=== PATIENT | female | born 1940 | race Caucasian/White ===

== ENCOUNTER → 2017-01-16 | Outpatient (CLI) | payer MEDICARE, BC ==
[~2017-01-16] MED LIST: APIX5TAB3 PO; CALC500T30 PO; CHOL10003 PO; CITA20TA9 PO; DOCU-109 PO; HYDR12.58 PO; IOHEXOL 300 MG/ML 50 ML VIAL. ONE; LATA2.5D3 EACHEYE; LIDOCAINE 1% PF 30 ML VIAL. ONE; POLY17PO5 PO; TRAM50TA PO; methylPREDNISolone ACETATE 40 MG/ML VIAL. ONE
== END | disposition home or self-care (01) ==
LOC: SURG 13:48
PROVIDERS: ATTEND Anesthesiology
DX: M16.11 Unilateral primary osteoarthritis, right hip (principal); I10 Essential (primary) hypertension; Z98.41 Cataract extraction status, right eye; Z98.42 Cataract extraction status, left eye
CPT/HCPCS: 20610; 77002; J1030; J2001; Q9967

== ENCOUNTER 2017-01-19 16:10 | Inpatient (IN) | payer MEDICARE, BC ==
[~2017-01-19] VITALS: Ht 154.9 cm; Wt 43.1 kg
[2017-01-19 14:30] VITALS: BP 162/82
[2017-01-19] MEDS ORDERED: CITA20TA9 PO (16:47)
[2017-01-19] MEDS ORDERED: HYDR12.58 PO (16:47)
[2017-01-19] MEDS ORDERED: CHOL10003 PO (16:47)
[2017-01-19] MEDS ORDERED: LATA2.5D3 EACHEYE (16:47)
[2017-01-19] MEDS ORDERED: TRAM50TA PO (16:47)
[2017-01-19] MEDS ORDERED: CALC500T30 PO (16:47)
[2017-01-19 19:54] VITALS: BP 133/65
[2017-01-19] MEDS: ONDANSETRON PF 4 MG/2 ML VIAL. IV PRN (20:11)
[2017-01-19] MEDS: LATANOPROST 0.005% OPHTH SOLUTION 2.5ML BOTTLE. OU SCH (20:12)
[2017-01-19] MEDS: ENOXAPARIN 40 MG/0.4 ML DISP.SYRIN. SQ SCH (20:12)
[2017-01-19] MEDS: traMADol 50 MG TABLET PO PRN (20:13)
--- NOTE | 2017-01-19 21:24 | RAD ---
Two-view chest radiograph 01/19/2017 CLINICAL INDICATION: Shortness of air. COMPARISON: None. FINDINGS: Cardiac and mediastinal silhouettes unremarkable. Scattered areas of pleural/parenchymal scarring throughout both lungs. No pleural effusion, pneumothorax or focal consolidation. There are moderate mid thoracic compression deformities with exaggerated kyphosis. Calcified atheromatous disease of throughout the aorta. Impression: 1. No acute cardiopulmonary abnormality. 2. Moderate midthoracic compression deformities, age indeterminate. Correlation with point tenderness is recommended. Electronically signed by: Twin Fairbanks MD (01/19/2017 9:20 PM) [facility]
[2017-01-20 00:16] VITALS: BP 141/66
--- NOTE | 2017-01-20 03:09 | HP ---
ADMIT DATE: 01/19/2017 HISTORY OF PRESENT ILLNESS: The patient is admitted as she was found to have bilateral deep vein thrombosis identified in the bilateral lower extremity venous system. She came to her primary care physician as she has some blackish discoloration outer aspect of her right foot and was worried about ischemia and basically while the technologist is doing arterial Doppler ultrasound today, incidentally found that the patient has nonocclusive clot identified in the common femoral vein, proximal, mid and distal femoral vein and popliteal vein. The right calf veins could not be identified. There is also nonocclusive clot identified in the left common femoral vein. There is also occlusive clot identified in deep femoral vein, visualized left superficial femoral. Popliteal veins are patent, and was admitted for anticoagulation. The patient herself denied any chest pain. She does have cough and shortness of breath that is outdated or has been there for a while now, mostly on exertion. Denied any hemoptysis. She did not specifically state that her shortness of breath has worsened recently. PAST MEDICAL HISTORY: Significant for osteoarthritis, osteoporosis, hypertension, and hyperlipidemia. Apparently, her liver enzymes were elevated and for some reason, her antithyroid medication was discontinued. According to her, she has glaucoma, hyperthyroidism and unintentional weight loss of about 35 pounds for more than a year and half. PAST SURGICAL HISTORY: Significant for bilateral cataract extraction, bladder suspension, total abdominal hysterectomy, bilateral salpingo-oophorectomy. ALLERGIES: She has no known drug allergies. MEDICATIONS: She is currently on following medications: She is on calcium carbonate 2000 mg once a day, cholecalciferol, vitamin D3 is 1000 international units once a day, citalopram hydrobromide 30 mg once a day, hydrochlorothiazide 12.5 mg once a day, latanoprost 2.5 mL one drop to each eye at bedtime, tramadol 50 mg every 6 hours. FAMILY HISTORY: Significant for the fact that her 2 brothers are , one of lung cancer at the age of 67 and one of stroke and Alzheimer's disease at 75. One of her sisters of lung cancer. The other of Alzheimer disease. She has 3 sisters alive and apparently healthy. Her father at the age of 72 because of brain tumor. Mother at the age of 81 because of myocardial infarction. SOCIAL HISTORY: She is , has 1 son. Her of lung cancer. She does not drink alcohol. She used to work in [employer]. REVIEW OF SYSTEMS: The patient denied any blurring of vision, did have bilateral cataract extraction and has glaucoma. Denied any earache, tinnitus or sensorineural deafness. Denied any nosebleeds, stuffy nose or postnasal drip. Denied any sore throat, sore tongue, toothache, hoarseness of voice or difficulty swallowing. Did complain of nausea and vomiting, mostly when she takes tramadol. She has also diarrhea alternating with constipation, but denied any hematemesis, melena or hematochezia. Denied any dysuria, frequency or hematuria. Denied any chest pain. Did complain of shortness of breath, exertion, not at rest. She did have cough with scanty sputum, but no hemoptysis. Denied any chills, rigors, or fever. Denied any dizziness, lightheadedness, or vertigo. PHYSICAL EXAMINATION: VITAL SIGNS: Her heart rate was 60, blood pressure 162/82, temperature was 97.7, respiratory rate was 18 and oxygen saturation was 99% on room air. She weighed 94.2 pounds. HEENT: Normocephalic, atraumatic. NECK: Supple. HEART: Showed normal first and second heart sounds with no gallop, rub or murmur. CHEST: Clear to auscultation. No crepitation or rhonchi. ABDOMEN: Distended, soft, nontender. No guarding or rigidity. No organomegaly. Hernial orifice intact. Bowel sounds normal. NEUROLOGIC: She was awake, alert, responding appropriately. All cranial nerves intact. EXTREMITIES: She moves extremities without difficulty. Examination of the extremities showed no clubbing, cyanosis or edema. Her dorsalis pedis in both feet are easily palpable. There are areas of redness in the outer aspect of the right foot. LABORATORY DATA AND IMAGING STUDIES: As I stated, her arterial Doppler ultrasound showed no evidence of focal elevated velocities suggest hemodynamically significant stenosis, moderate atherosclerosis, bilateral lower extremity arterial system, echogenicity identified in the bilateral common femoral veins, likely deep vein thrombosis. She did have venous Doppler ultrasound of both lower extremities, which showed that she has deep venous thrombosis identified in the bilateral lower extremity venous systems. The patient will be started on Lovenox 1 mg/kg subcutaneously twice a day. We will continue all her medications. I will obviously arrange for her to have lab work and do a chest x-ray and CT scan of the abdomen and pelvis. Her lab work done yesterday showed that her white cell count was 7100, hemoglobin 12.6, hematocrit 37, MCV was 94 and platelet count of 202,000. Her serum sodium was 142, potassium 4.5, chloride 99, bicarbonate 28, glucose was 96 and her BUN was 34, creatinine 0.67. Estimated GFR was 84 mL per minute and her calcium was 9.6. ALEC RIBERA MD DR: RENETTA/ron JOB#: [id number] / [id number]
[2017-01-20] MEDS: ONDANSETRON PF 4 MG/2 ML VIAL. IV PRN ×3 (05:44→21:22)
[2017-01-20] MEDS: traMADol 50 MG TABLET PO PRN ×3 (05:45→21:22)
[2017-01-20 06:04] LABS: HEMATOCRIT 39.2 % (36.0-47.0); HEMOGLOBIN 12.9 g/dL (12.0-15.5); RED BLOOD COUNT 4.58 x10^6/uL (3.50-5.40); RED CELL DISTRIBUTION WIDTH 13.2 % (11.5-14.5); WHITE BLOOD COUNT 7.4 x10^3/uL (4.0-11.0)
[2017-01-20 06:05] VITALS: BP 157/67
[2017-01-20 06:19] LABS: ALBUMIN 3.4 g/dL (3.4-5.0); ALBUMIN/GLOBULIN RATIO 1.1 (1.0-1.7); C REACTIVE PROTEIN 1.4 mg/L (0-3.3); CREATININE 0.7 mg/dL (0.6-1.0); GFR 80.9; TOTAL BILIRUBIN 0.5 mg/dL (0.2-1.0); TOTAL PROTEIN 6.5 g/dL (6.4-8.2)
[2017-01-20] MEDS ORDERED: CALCIUM CARBONATE 500 MG TABLET PO SCH (09:00)
[2017-01-20] MEDS: CHOLECALCIFEROL (VITAMIN D3) 1,000 UNIT TABLET PO SCH (09:42)
[2017-01-20] MEDS: hydroCHLOROthiazide 12.5 MG CAPSULE PO SCH (09:42)
[2017-01-20] MEDS: ENOXAPARIN 40 MG/0.4 ML DISP.SYRIN. SQ SCH ×2 (09:43→21:21)
[2017-01-20] MEDS: CITALOPRAM 20 MG TABLET. PO SCH (09:44)
[2017-01-20 10:43] VITALS: BP 112/57
[2017-01-20] MEDS ORDERED: IOHEXOL 300 MG/ML 75 ML VIAL. IV ONE (13:45)
[2017-01-20] MEDS ORDERED: IOHEXOL 240 MG/ML 50ML VIAL. PO ONE (13:45)
[2017-01-20 15:46] VITALS: BP 126/64
[2017-01-20] MEDS: WARFARIN 7.5 MG TABLET. PO SCH (16:41)
--- NOTE | 2017-01-20 18:20 | RAD ---
CT chest with contrast, CT abdomen and pelvis with contrast. HISTORY: Chest and abdominal pain history of deep venous thrombosis, short of breath CT CHEST: CT scan of the chest was done using 70 mL of Isovue-370 contrast. Thyroid is homogeneous. There is no mediastinal adenopathy or pleural effusion. There is a large hiatus hernia. There is dorsal kyphosis. There are midthoracic compression fractures. The lungs are free of infiltrates. There is linear scarring or atelectasis in the lung bases and in the right middle lobe. There are subacute right posterior 10th and 11th rib fractures. This study was not done specifically with specific pulmonary emboli technique. There is a pulmonary embolus in the left lower lobe. There are pulmonary emboli into segmental branches of the right lower lobe. IMPRESSION: 1. Bilateral pulmonary emboli. 2. Linear atelectasis in both lungs. 3. Large hiatus hernia End impression CT abdomen and pelvis. CT scan the abdomen and pelvis was done following the CT chest with contrast. There is a small cyst in the liver. Spleen and adrenal glands are normal. There is no mass or hydronephrosis in the kidneys. There is atherosclerotic change in the aorta. There is no obvious pancreatic lesion. The gallbladder is contracted. There is no bowel obstruction. There is diverticulosis without definite diverticulitis. Patient appears to had a hysterectomy. There is no obvious thrombosis in the vena cava. The appendix is normal adjacent to the bladder on the right. There is increased stool in the colon. There is a mild compression fracture of L1 and minimal compression of the superior endplate of L3. Degenerative disc disease at L4-5. There is a focal partially calcified disc protrusion at L4-5. IMPRESSION: 1. Mild lumbar compression fractures. 2. No abdominal or pelvic mass noted. PQRS Compliance Statement: One or more of the following individualized dose reduction techniques were utilized for this examination: 1. Automated exposure control 2. Adjustment of the mA and/or kV according to patient size 3. Use of iterative reconstruction technique Electronically signed by: Allan Bryant MD (01/20/2017 6:17 PM) [facility]
[2017-01-20 19:28] VITALS: BP 121/48
[2017-01-20] MEDS ORDERED: APIXABAN 5 MG TABLET. PO SCH ×2 (21:00)
[2017-01-20] MEDS: LATANOPROST 0.005% OPHTH SOLUTION 2.5ML BOTTLE. OU SCH (21:21)
[2017-01-20 22:41] VITALS: BP 150/69
--- NOTE | 2017-01-21 02:02 | PN ---
DATE: 01/20/2017 SUBJECTIVE: The patient is sitting comfortably in her chair, in no apparent distress. Her main complaint is pain in her hip joint. She denied any chest pain, shortness of breath, cough, phlegm or hemoptysis. Her chest x-ray showed that her cardiac and mediastinal silhouette unremarkable, scattered areas of pleural parenchymal scarring throughout both lungs. No pleural effusion, pneumothorax or focal consolidation. There are moderate mid thoracic compression deformities with exaggerated kyphosis, calcified atheromatous disease throughout aorta. OBJECTIVE: GENERAL: On examining her, she looked well and was clearly in no apparent respiratory distress, pale, but no jaundice, cyanosis, lymphadenopathy, or thyromegaly. No jugular venous distention. No limb edema. VITAL SIGNS: Her heart rate was 64, blood pressure 112/57, temperature was 98, respiratory rate 20, and oxygen saturation was 96%. HEAD, EYES, EARS, NOSE AND THROAT: Showed normocephalic, atraumatic. NECK: Supple. HEART: Showed normal first and second sounds. No gallop, rub or murmur. CHEST: Clear to auscultation. No crepitation or rhonchi. ABDOMEN: Distended, soft, nontender. No guarding or rigidity. No organomegaly. Hernial orifice intact. Bowel sounds normal. NEUROLOGIC: She was awake, alert, responding appropriately. Cranial nerves intact. She moves extremities without difficulty. She ambulates with a walker. Her intake was 420, output was 200. LABORATORY DATA: Showed a white cell count 7400, hemoglobin 13, hematocrit 39, MCV 85, platelet count of 187,000. Her sed rate was only 4 mm per hour. Her serum sodium 142, potassium 4, chloride 105, bicarbonate 32, anion gap of 5, BUN 25, creatinine 0.7, estimated GFR was 81 mL per minute. Her glucose was 92, calcium was 9. Total bilirubin, AST, ALT, alkaline phosphatase were normal. Total protein was 6.5, albumin 3.4. Her C-reactive protein was 1.4 mg/dL And TSH was 0.867. ASSESSMENT: 1. Bilateral lower extremity deep venous thrombosis for which she is now on Lovenox 1 mg/kg twice a day. 2. Osteoarthritis of both hip joints. 3. Severe osteoporosis with multiple compression fractures of thoracic and lumbar spine with marked kyphosis. 4. Hypertension. 5. Hyperlipidemia. PLAN: My plan is to arrange for a CT scan of the chest, abdomen and pelvis with IV contrast and switch her to Eliquis. ALEC RIBERA MD DR: RENETTA/ron JOB#: [id number] / [id number]
[2017-01-21 05:52] VITALS: BP 171/74
[2017-01-21 07:50] LABS: CALCIUM 8.8 mg/dL (8.5-10.1); CREATININE 0.7 mg/dL (0.6-1.0); GFR 80.9; POTASSIUM 4.2 mmol/L (3.5-5.1)
[2017-01-21] MEDS: hydroCHLOROthiazide 12.5 MG CAPSULE PO SCH (08:33)
[2017-01-21] MEDS: CITALOPRAM 20 MG TABLET. PO SCH (08:34)
[2017-01-21] MEDS: CHOLECALCIFEROL (VITAMIN D3) 1,000 UNIT TABLET PO SCH (08:34)
[2017-01-21] MEDS: ENOXAPARIN 40 MG/0.4 ML DISP.SYRIN. SQ SCH ×2 (08:35→22:05)
[2017-01-21] MEDS ORDERED: CALCIUM CARBONATE 500 MG TABLET PO SCH (09:00)
[2017-01-21] MEDS: traMADol 50 MG TABLET PO PRN (10:11)
[2017-01-21] MEDS: ONDANSETRON PF 4 MG/2 ML VIAL. IV PRN (10:11)
[2017-01-21 11:11] VITALS: BP 161/63
[2017-01-21] MEDS ORDERED: BISACODYL TAB 5 MG TABLET.DR. PO PRN (11:15)
[2017-01-21 11:18] VITALS: BP 135/52
[2017-01-21] MEDS: POLYETHYLENE GLYCOL 3350 17 GM PACKET. PO SCH (12:17)
[2017-01-21 15:38] VITALS: BP 124/62
[2017-01-21] MEDS: WARFARIN 7.5 MG TABLET. PO SCH (16:34)
--- NOTE | 2017-01-21 17:35 | PN ---
DATE: 01/21/2017 SUBJECTIVE: The patient is resting, slightly propped up in bed, in no apparent respiratory distress. On questioning her, her main complaint is obviously pain and constipation. We did the CT scan of the chest and abdomen and pelvis. Her CT scan of the chest showed bilateral pulmonary emboli, linear atelectasis in both lungs and large hiatal hernia. CT scan of the abdomen showed mild lumbar compression fracture. No abdominal or pelvic mass noted. OBJECTIVE: GENERAL: On examining her, she looked pale, cachectic, but no jaundice, cyanosis, or thyromegaly. No jugular venous distension. No limb edema. VITAL SIGNS: Her heart rate was 52, blood pressure was 171/74, temperature was 97.9, respiratory rate 20, and oxygen saturation was 97% on room air. HEAD, EYES, EARS, NOSE AND THROAT: Showed normocephalic, atraumatic. NECK: Supple. HEART: Showed normal first and second heart sounds with no gallop, rub or murmur. CHEST: Clear to auscultation. No crepitation or rhonchi. ABDOMEN: Distended, soft, nontender. No guarding or rigidity. No organomegaly. Her hernial orifice intact. Bowel sounds normal. NEUROLOGIC: She is awake, alert, responding appropriately, all cranial nerves are intact. She moves her extremities without difficulty. She ambulates with a walker. Her intake over the last 24 hours was 1300, output was 1350. LABORATORY DATA: This morning showed a serum sodium 140, potassium 4.2, chloride 103, bicarbonate 33, anion gap of 4, BUN 15, creatinine 0.7. Her white cell count 7.4, hemoglobin 13, hematocrit 39, MCV 86, and platelet count of 107,000. Sed rate was 4 mm per hour and C-reactive protein was 1.4 mg/dL. Her prothrombin time is 14.3, INR 1.1, which is obviously subtherapeutic. ASSESSMENT: 1. Bilateral lower extremity deep vein thrombosis and bilateral pulmonary emboli for which she is on a therapeutic dose of Lovenox and we will start her on Coumadin. 2. Osteoarthritis of both hip joints. 3. Severe osteoporosis, multiple compression fractures of thoracic and lumbar spine, marked kyphosis. 4. Hypertension. 5. Hyperlipidemia. PLAN: To continue with the Coumadin 7.5 mg as well as Lovenox can be discontinued once the INR is 2 or more than 2. She can be discharged on Coumadin, unless there is a way to switch her to start her on Eliquis and/or Xarelto. ALEC RIBERA MD DR: RENETTA/ron JOB#: [id number] / [id number]
[2017-01-21 19:30] VITALS: BP 156/69
[2017-01-21] MEDS: LATANOPROST 0.005% OPHTH SOLUTION 2.5ML BOTTLE. OU SCH (22:04)
[2017-01-21] MEDS: DOCUSATE SODIUM 100 MG CAPSULE PO SCH (22:04)
[2017-01-21] MEDS: CALCIUM CARBONATE 500 MG TABLET PO SCH (22:05)
[2017-01-21 23:03] VITALS: BP 134/57
[2017-01-22 05:12] VITALS: BP 122/59
[2017-01-22] MEDS: POLYETHYLENE GLYCOL 3350 17 GM PACKET. PO SCH (08:21)
[2017-01-22] MEDS: CITALOPRAM 20 MG TABLET. PO SCH (08:21)
[2017-01-22] MEDS: CALCIUM CARBONATE 500 MG TABLET PO SCH (08:22)
[2017-01-22] MEDS: CHOLECALCIFEROL (VITAMIN D3) 1,000 UNIT TABLET PO SCH (08:23)
[2017-01-22] MEDS: DOCUSATE SODIUM 100 MG CAPSULE PO SCH (08:23)
[2017-01-22] MEDS: ENOXAPARIN 40 MG/0.4 ML DISP.SYRIN. SQ SCH (08:28)
[2017-01-22] MEDS: traMADol 50 MG TABLET PO PRN ×2 (08:30→15:08)
[2017-01-22] MEDS ORDERED: hydroCHLOROthiazide 12.5 MG CAPSULE PO SCH (09:00)
[2017-01-22 10:42] VITALS: BP 144/70
[2017-01-22] MEDS ORDERED: POLY17PO5 PO (13:50)
[2017-01-22] MEDS ORDERED: APIX5TAB3 PO (13:50)
--- NOTE | 2017-01-22 13:56 | PDOC3 ---
Discharge Summary Visit Information Date of Admission: Jan 19, 2017 Date of Discharge: Jan 22, 2017 Final Diagnosis SESSMENT: 1. Bilateral lower extremity deep vein thrombosis and bilateral pulmonary emboli for which she is on a therapeutic dose of Lovenox and we will start her on Coumadin. 2. Osteoarthritis of both hip joints. 3. Severe osteoporosis, multiple compression fractures of thoracic and lumbar spine, marked kyphosis. 4. Hypertension. 5. Hyperlipidemia. Problems: Brief Hospital Course Allergies Allergies Coded Allergies Type Severity Reaction Last Updated Verified No Known Drug Allergies 01/19/17 No Vital Signs Vital Signs Date Time Temp Pulse Resp B/P (MAP) Pulse Ox O2 Delivery O2 Flow Rate FiO2 01/22/17 10:42 98.3 77 20 144/70 (94) 97 Room Air Lab Results Laboratory Tests Test 01/21/17 06:50 01/22/17 06:21 Prothrombin Time 14.3 SEC (9.4-11.4) 19.4 SEC (9.4-11.4) Prothromb Time International Ratio 1.1 (0.9-1.1) 1.6 (0.9-1.1) Sodium Level 140 mmol/L (136-145) Potassium Level 4.2 mmol/L (3.5-5.1) Chloride Level 103 mmol/L (98-107) Carbon Dioxide Level 33 mmol/L (21-32) Anion Gap 4 (6-14) Blood Urea Nitrogen 15 mg/dL (7-20) Creatinine 0.7 mg/dL (0.6-1.0) Estimated GFR (Cockcroft-Gault) 80.9 Glucose Level 96 mg/dL (70-99) Calcium Level 8.8 mg/dL (8.5-10.1) Brief Hospital Course Ms. Siddiqi is a 76 old [sex] who presented with [ ]ient is admitted as she was found to have bilateral deep vein thrombosis identified in the bilateral lower extremity venous system. She came to her primary care physician as she has some blackish discoloration outer aspect of her right foot and was worried about ischemia and basically while the technologist is doing arterial Doppler ultrasound today, incidentally found that the patient has nonocclusive clot identified in the common femoral vein, proximal, mid and distal femoral vein and popliteal vein. The right calf veins could not be identified. There is also nonocclusive clot identified in the left common femoral vein. There is also occlusive clot identified in deep femoral vein, visualized left superficial femoral. Popliteal veins are patent, and was admitted for anticoagulation. The patient herself denied any chest pain. She does have cough and shortness of breath that is outdated or has been there for a while now, mostly on exertion. Denied any hemoptysis. She did not specifically state that her shortness of breath has worsened recently.SHE WAS INNITIALLY STARTED ON COUMADIN AND LOVONOX BUT SHE WAS APPROVED FOR ELIQUIS SO WILL BE DISCHARGED ON THAT. SHE HAD SOME ISSUES WITH CONSTIPATION WHICH WERE RESOLVED WITH MIRALAX. Discharge Information Condition at Discharge: Improved Disposition/Orders: D/C to Home w/ HH Dischare Medications Current Medications Calcium Carbonate/ Glycine (Oscal) 2,000 mg DAILY PO Last administered on 09:43; Start 01/20/17 at 09:00; Stop 01/21/17 at 08:33; Status DC Vitamin D (Vitamin D3) 1,000 unit DAILY PO Last administered on 01/22/17 08: 23; Start 01/20/17 at 09:00 Citalopram Hydrobromide (CeleXA) 30 mg DAILY PO Last administered on 08:21; Start 01/20/17 at 09:00 Latanoprost (Xalatan) 1 drop QHS OU Last administered on 01/21/17 22:04; Start 01/19/17 at 21:00 Tramadol HCl (Ultram) 50 mg PRN Q6HRS PRN PO PAIN Last administered on 08:30; Start 01/19/17 at 18:00 Hydrochlorothiazide (Microzide) 12.5 mg DAILY PO Last administered on 08:33; Start 01/20/17 at 09:00; Stop 01/21/17 at 08:48; Status DC Enoxaparin Sodium (Lovenox) 40 mg BID SQ Last administered on 01/20/17 09:43; Start 01/19/17 at 21:00; Stop 01/20/17 at 13:45; Status DC Ondansetron HCl (Zofran) 4 mg PRN Q6HRS PRN IV NAUSEA/VOMITING Last administered on 01/21/17 10:11; Start 01/19/17 at 19:45 Apixaban (Eliquis) 10 mg BID PO ; Start 01/20/17 at 21:00; Status UNV Iohexol (Omnipaque 240 Mg/ml) 30 ml 1X ONCE PO Last administered on 01/20/17 15:36; Start 01/20/17 at 13:45; Stop 01/20/17 at 13:46; Status DC Iohexol (Omnipaque 300 Mg/ml) 75 ml 1X ONCE IV Last administered on 01/20/17 15:36; Start 01/20/17 at 13:45; Stop 01/20/17 at 13:46; Status DC Apixaban (Eliquis) 10 mg BID PO ; Start 01/20/17 at 21:00; Stop 01/20/17 at 21: 00; Status DC Warfarin Sodium (Coumadin) 7.5 mg DAILY16 PO Last administered on 01/21/17 16 :34; Start 01/20/17 at 16:00; Stop 01/22/17 at 13:08; Status DC Enoxaparin Sodium (Lovenox) 40 mg BID SQ Last administered on 01/22/17 08:28 ; Start 01/20/17 at 21:00 Warfarin Sodium (Coumadin Per Physician) 1 each PRN DAILY PRN MC SEE COMMENTS; Start 01/20/17 at 14:00; Stop 01/22/17 at 07:07; Status DC Calcium Carbonate/ Glycine (Oscal) 2,000 mg BID PO ; Start 01/21/17 at 09:00; Stop 01/21/17 at 10:33; Status DC Hydrochlorothiazide (Microzide) 12.5 mg QODAY PO Last administered on 08:23; Start 01/22/17 at 09:00 Calcium Carbonate/ Glycine (Oscal) 1,000 mg BID PO Last administered on 08:22; Start 01/21/17 at 21:00 Docusate Sodium (Colace) 100 mg BID PO Last administered on 01/22/17 08:23; Start 01/21/17 at 21:00 Bisacodyl (Dulcolax Tab) 10 mg PRN DAILY PRN PO CONSTIPATION; Start 01/21/17 at 11:15 Polyethylene Glycol (miraLAX) 17 gm DAILY PO Last administered on 01/22/17t 08 :21; Start 01/21/17 at 11:30 Warfarin Sodium (Coumadin Per Pharmacy) 1 each PRN DAILY PRN PERLA SEE COMMENTS; Start 01/22/17 at 07:15 Warfarin Sodium (Coumadin) 3 mg 1X WARF ONCE PO ; Start 01/22/17 at 16:00; Stop 01/22/17 at 16:01 Apixaban (Eliquis) 10 mg 1X ONCE PO ; Start 01/22/17 at 13:30; Stop 01/22/17 at 13:31; Status UNV Active Scripts Active Reported Tramadol Hcl (Tramadol HCl) 50 Mg Tablet 50 Mg PO PRN Q6HRS PRN LAST DOSE GIVEN: DATE: TIME: NEXT DOSE DUE: DATE: TIME: Celexa (Citalopram Hydrobromide) 20 Mg Tablet 30 Mg PO DAILY LAST DOSE GIVEN: DATE: TIME: NEXT DOSE DUE: DATE: TIME: Latanoprost 2.5 Ml Drops 1 Drop EACHEYE QHS LAST DOSE GIVEN: DATE: TIME: NEXT DOSE DUE: DATE: TIME: Vitamin D3 (Cholecalciferol (Vitamin D3)) 1,000 Unit Tablet 1 Tab PO DAILY LAST DOSE GIVEN: DATE: TIME: NEXT DOSE DUE: DATE: TIME: Calcium (Calcium Carbonate) 500 Mg Tablet 2,000 Mg PO DAILY LAST DOSE GIVEN: DATE: TIME: NEXT DOSE DUE: DATE: TIME: Hydrochlorothiazide Tablet (Hydrochlorothiazide) 12.5 Mg Tablet 1 Tab PO DAILY LAST DOSE GIVEN: DATE: TIME: NEXT DOSE DUE: DATE: TIME: Patient Instructions Patient Instuctions SEE DR. DENTON WITHIN THE WEEK. CONTINUE TO TAKE YOUR ANTICOAGULANT. TAKE TRAMADOL WITH FOOD. COPY TO [facility]. PENG COHN DO Jan 22, 2017 13:56
[2017-01-22] MEDS ORDERED: APIXABAN 5 MG TABLET. PO ONE (14:00)
[2017-01-22 15:27] VITALS: BP 135/68
[2017-01-22] MEDS ORDERED: WARFARIN 3 MG TABLET. PO ONE (16:00)
== END 2017-01-22 16:27 | disposition home health service (06) | DRG 299 ==
LOC: 1 SOUTH 16:12
PROVIDERS: ADMIT Internal Medicine; ATTEND Internal Medicine
DX: I82.413 Acute embolism and thrombosis of femoral vein, bilateral (principal); I26.99 Other pulmonary embolism without acute cor pulmonale; M48.54XA Collapsed vertebra, not elsewhere classified, thoracic region, initial encounter for fracture; M48.56XA Collapsed vertebra, not elsewhere classified, lumbar region, initial encounter for fracture; J98.11 Atelectasis; I82.431 Acute embolism and thrombosis of right popliteal vein; E78.5 Hyperlipidemia, unspecified; H40.9 Unspecified glaucoma; I10 Essential (primary) hypertension; M16.0 Bilateral primary osteoarthritis of hip; E05.90 Thyrotoxicosis, unspecified without thyrotoxic crisis or storm; K44.9 Diaphragmatic hernia without obstruction or gangrene; K59.00 Constipation, unspecified; M40.205 Unspecified kyphosis, thoracolumbar region; M40.209 Unspecified kyphosis, site unspecified; M81.0 Age-related osteoporosis without current pathological fracture; Z79.01 Long term (current) use of anticoagulants; Z79.899 Other long term (current) drug therapy; Z80.1 Family history of malignant neoplasm of trachea, bronchus and lung; Z82.0 Family history of epilepsy and other diseases of the nervous system; Z82.3 Family history of stroke; Z82.49 Family history of ischemic heart disease and other diseases of the circulatory system; Z90.710 Acquired absence of both cervix and uterus; Z98.41 Cataract extraction status, right eye; Z98.42 Cataract extraction status, left eye; Z90.79 Acquired absence of other genital organ(s); Z90.722 Acquired absence of ovaries, bilateral
CPT/HCPCS: 36415; 71020; 71260; 74177; 80048; 80053; 84443; 85027; 85610; 85651; 86140; 93925; 93970; J1650; J2405; Q9966; Q9967; 97530

== ENCOUNTER → 2017-01-19 | Outpatient (CLI) | payer MEDICARE, BC ==
[~2017-01-19] MED LIST changes: -DOCU-109 PO; -IOHEXOL 300 MG/ML 50 ML VIAL. ONE; -LIDOCAINE 1% PF 30 ML VIAL. ONE; -methylPREDNISolone ACETATE 40 MG/ML VIAL. ONE
--- NOTE | 2017-01-19 14:36 | RAD ---
Examination: Ultrasound bilateral lower extremity arterial duplex History: History of cyanosis of the bilateral feet Comparison: None available Technique: Grayscale, color Doppler 2-D, spectral waveform analysis of the bilateral lower extremity arterial system was performed Findings: There is atherosclerotic plaque identified throughout the bilateral lower extremity arterial system. There is no evidence of focal elevated velocities in the bilateral lower extremity arterial system. The left proximal [employer] could not be identified. There is triphasic and biphasic waveforms identified throughout the bilateral lower extremity arterial system. Incidental note of echogenicity identified in the bilateral common femoral veins likely due to venous thrombosis. Impression 1. No evidence of focal elevated velocity to suggest hemodynamically significant stenosis. Moderate atherosclerosis bilateral lower extremity arterial system. 2. Echogenicity identified in the bilateral common femoral veins likely deep venous thrombosis. Ordering physician's office is aware.
--- NOTE | 2017-01-19 15:06 | RAD ---
Examination: Ultrasound bilateral lower extremity venous duplex History: History of common femoral vein thrombus Comparison: None available Technique: Grayscale, color Doppler 2-D, spectral waveform analysis of the bilateral lower extremity venous system was performed. Findings: Right lower extremity: There is nonocclusive clot identified in the common femoral vein, proximal, mid, distal femoral vein and popliteal vein. The right calf veins could not be evaluated. Left lower extremity: There is nonocclusive clot identified in the left common femoral vein. There is occlusive clot identified in the deep femoral vein. The visualized left superficial femoral vein and popliteal vein are patent. The calf veins could not be visualized. Impression: Deep venous thrombosis identified in the bilateral lower extremity venous system as described above. Ordering physician office is aware of the findings
== END | disposition home or self-care (01) ==
LOC: US 12:54
PROVIDERS: ATTEND Specialist
DX: I82.493 Acute embolism and thrombosis of other specified deep vein of lower extremity, bilateral (principal); I70.202 Unspecified atherosclerosis of native arteries of extremities, left leg; I70.291 Other atherosclerosis of native arteries of extremities, right leg; Z86.718 Personal history of other venous thrombosis and embolism; Z87.891 Personal history of nicotine dependence
CPT/HCPCS: 93925; 93970

== ENCOUNTER 2017-01-29 15:39 | Inpatient (IN) | payer MEDICARE, BC ==
[~2017-01-29] VITALS: Ht 154.9 cm; Wt 44.0 kg
[2017-01-29] MEDS ORDERED: IV NORMAL SALINE 1,000ML 1,000 ML IV ONE (16:15)
--- NOTE | 2017-01-29 16:40 | RAD ---
Indication: Fever. Technique: PA and lateral views of the chest Comparison: Previous study from 01/19/2017 Findings: Heart is normal in size. Lungs are hyperinflated with flattening of diaphragms. Stable retrocardiac opacity is noted best seen on lateral view which corresponds to hiatal hernia. Otherwise, lungs are clear.. No pneumothorax or pleural effusion. Increased thoracic kyphosis noted with few compression deformities of the thoracic spine likely chronic in nature from osteoporotic fractures. Impression: No acute cardiopulmonary process.
--- NOTE | 2017-01-29 16:42 | EKG ---
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
[2017-01-29 17:08] LABS: BASO # 0.1 x10^3/uL (0.0-0.2); BASO % 1 % (0-3); EOS % 0 % (0-3); HEMATOCRIT 40.1 % (36.0-47.0); HEMOGLOBIN 13.2 g/dL (12.0-15.5); LYMPH # 1.3 x10^3/uL (1.0-4.8); LYMPH % 11 % (24-48); MEAN CORPUSCULAR HEMOGLOBIN 28 pg (25-35); MEAN CORPUSCULAR HGB CONC 33 g/dL (31-37); MEAN CORPUSCULAR VOLUME 85 fL (79-100); MONO # 0.9 x10^3/uL (0.0-1.1); MONO % 8 % (0-9); NEUT # 9.3 x10^3uL (1.8-7.7); NEUT % 81 % (31-73); PLATELET COUNT 289 x10^3/uL (140-400); RED BLOOD COUNT 4.73 x10^6/uL (3.50-5.40); RED CELL DISTRIBUTION WIDTH 13.5 % (11.5-14.5); WHITE BLOOD COUNT 11.6 x10^3/uL (4.0-11.0)
[2017-01-29 17:18] LABS: ALBUMIN 3.4 g/dL (3.4-5.0); ALBUMIN/GLOBULIN RATIO 0.7 (1.0-1.7); CALCIUM 9.8 mg/dL (8.5-10.1); GFR 53.6; POTASSIUM 3.6 mmol/L (3.5-5.1); TOTAL BILIRUBIN 0.8 mg/dL (0.2-1.0)
[2017-01-29 17:23] LABS: INFLUENZA A PATIENT NEGATIVE (NEGATIVE); INFLUENZA B PATIENT NEGATIVE (NEGATIVE)
[2017-01-29] MEDS ORDERED: PIPERACILLIN/TAZOBACTAM 3.375 GM in IV NORMAL SALINE 50ML 50 ML IV ONE (17:45)
[2017-01-29] MEDS ORDERED: IV NORMAL SALINE 500ML 500 ML IV ONE (17:45)
[2017-01-29 17:52] LABS: BILIRUBIN,URINE NEG (NEG); CLARITY,URINE HAZY; COLOR,URINE YELLOW; GLUCOSE,URINE NEG (NEG); NITRITE,URINE NEG (NEG); UROBILINOGEN,URINE 4 mg/dL (0.2 mg/dL)
[2017-01-29 17:53] LABS: BACTERIA,URINE MANY /HPF (0-FEW); HYALINE CASTS, URINE FEW /HPF; SQUAMOUS EPITHELIAL CELL,UR MANY /LPF
--- NOTE | 2017-01-29 17:58 | PHYS DOC ---
Past History Past Medical History: Other Additional Past Medical Histor: PE, chronic back pain, hyperthyroid Smoking: Non-smoker Adult General Chief Complaint Chief Complaint: FEVER HPI HPI 76-year-old female patient was admitted to [facility] for bilateral DVT and PE and discharged home one week ago. Patient was in by her primary care physician today for after hospitalization checkup and had temperature of 101 and had Tylenol 500 mg by mouth and sent to ER for evaluation. Patient denies fever and chills, weakness, cough and congestion, chest pain and shortness of breath, urinary symptoms, abdominal pain, diarrhea and constipation. Review of Systems Review of Systems Constitutional: Denies fever or chills [] Eyes: Denies change in visual acuity, redness, or eye pain [] HENT: Denies nasal congestion or sore throat [] Respiratory: Denies cough or shortness of breath [] Cardiovascular: No additional information not addressed in HPI [] GI: Denies abdominal pain, nausea, vomiting, bloody stools or diarrhea [] : Denies dysuria or hematuria [] Musculoskeletal: Reports back pain and joint pain [] Integument: Denies rash or skin lesions [] Neurologic: Denies headache, focal weakness or sensory changes [] Endocrine: Denies polyuria or polydipsia [] All other systems were reviewed and found to be within normal limits, except as documented in this note. Current Medications Current Medications Current Medications Medications (Trade) Dose Ordered Sig/Singh Start Time Stop Time Status Last Admin Dose Admin Piperacillin Sod/ Tazobactam Sod 3.375 gm/Sodium Chloride 50 ml @ 100 mls/hr 1X ONCE 01/29/17 17:45 01/29/17 18:14 Sodium Chloride 500 ml @ 0 mls/hr 1X ONCE 01/29/17 17:45 01/29/17 17:46 DC 01/29/17 17:43 1,000 MLS/HR Allergies Allergies Allergies Coded Allergies Type Severity Reaction Last Updated Verified No Known Drug Allergies 01/19/17 No Physical Exam Physical Exam Constitutional: Thin patient, mild distress, non-toxic appearance, afebrile. [] HENT: Normocephalic, atraumatic, bilateral external ears normal, oropharynx moist, no oral exudates, nose normal. [] Eyes: PERRLA, EOMI, conjunctiva normal, no discharge. [] Neck: Normal range of motion, no tenderness, supple, no stridor. [] Cardiovascular:Heart rate regular rhythm, no murmur [] Lungs & Thorax: Bilateral breath sounds clear to auscultation [] Abdomen: Bowel sounds normal, soft, no tenderness, no masses, no pulsatile masses. [] Skin: Warm, dry, no erythema, no rash. [] Back: No tenderness, no CVA tenderness. [] Extremities: No tenderness, no cyanosis, no clubbing, ROM intact, no edema. [] Neurologic: Alert and oriented X 3, normal motor function, normal sensory function, no focal deficits noted. [] Psychologic: Affect normal, judgement normal, mood normal. [] Current Patient Data Lab Results Laboratory Tests Test 01/29/17 16:26 White Blood Count 11.6 x10^3/uL (4.0-11.0) H Red Blood Count 4.73 x10^6/uL (3.50-5.40) Hemoglobin 13.2 g/dL (12.0-15.5) Hematocrit 40.1 % (36.0-47.0) Mean Corpuscular Volume 85 fL (79-100) Mean Corpuscular Hemoglobin 28 pg (25-35) Mean Corpuscular Hemoglobin Concent 33 g/dL (31-37) Red Cell Distribution Width 13.5 % (11.5-14.5) Platelet Count 289 x10^3/uL (140-400) Neutrophils (%) (Auto) 81 % (31-73) H Lymphocytes (%) (Auto) 11 % (24-48) L Monocytes (%) (Auto) 8 % (0-9) Eosinophils (%) (Auto) 0 % (0-3) Basophils (%) (Auto) 1 % (0-3) Neutrophils # (Auto) 9.3 x10^3uL (1.8-7.7) H Lymphocytes # (Auto) 1.3 x10^3/uL (1.0-4.8) Monocytes # (Auto) 0.9 x10^3/uL (0.0-1.1) Eosinophils # (Auto) 0.0 x10^3/uL (0.0-0.7) Basophils # (Auto) 0.1 x10^3/uL (0.0-0.2) Sodium Level 134 mmol/L (136-145) L Potassium Level 3.6 mmol/L (3.5-5.1) Chloride Level 96 mmol/L (98-107) L Carbon Dioxide Level 25 mmol/L (21-32) Anion Gap 13 (6-14) Blood Urea Nitrogen 24 mg/dL (7-20) H Creatinine 1.0 mg/dL (0.6-1.0) Estimated GFR (Cockcroft-Gault) 53.6 BUN/Creatinine Ratio 24 (6-20) H Glucose Level 115 mg/dL (70-99) H Lactic Acid Level 2.7 mmol/L (0.4-2.0) H Calcium Level 9.8 mg/dL (8.5-10.1) Total Bilirubin 0.8 mg/dL (0.2-1.0) Aspartate Amino Transferase (AST) 62 U/L (15-37) H Alanine Aminotransferase (ALT) 99 U/L (14-59) H Alkaline Phosphatase 239 U/L (46-116) H Troponin I Quantitative < 0.017 ng/mL (0-0.055) ED-Fwp-K-Type Natriuretic Peptide 394 pg/mL (0-449) Total Protein 8.0 g/dL (6.4-8.2) Albumin 3.4 g/dL (3.4-5.0) Albumin/Globulin Ratio 0.7 (1.0-1.7) L Influenza Type A (Rapid) Negative (NEGATIVE) Influenza Type B (Rapid) Negative (NEGATIVE) EKG EKG [EKG interpreted by me. EKG at 1639 showed normal sinus rhythm at rate of 69, left atrial abnormality, no ST and T wave abnormality] Radiology/Procedures Radiology/Procedures [] Course & Med Decision Making Course & Med Decision Making Pertinent Labs and Imaging studies reviewed. (See chart for details) Evaluation of patient in ER showed 76-year-old female patient with history of recent hospitalization sent from primary care physician office because of fever of 101. Patient did not have fever in ER and denied new symptom after her recent hospitalization. Patient complaining of chronic back pain. Chest exam flu test was negative. White count was 11.6 and lactic acid was 2.7. Patient treated with 30/kg mL of IV fluid. UA is pending. Plan to admit patient with diagnosis of SIRS and fever. Dr. Hutchinson accepted mission at 1745. UA is pending, plan to repeat lactic acid in 3 hours. Dragon Disclaimer Dragon Disclaimer This electronic medical record was generated, in whole or in part, using a voice recognition dictation system. Departure Departure: Impression: Primary Impression: SIRS (systemic inflammatory response syndrome) Additional Impressions: Fever History of pulmonary embolism Chronic back pain Disposition: ADMITTED INPATIENT (At 1745) Admitting Physician: Merna Hutchinson Condition: IMPROVED Referrals: TREV SAMANIEGO MD (PCP) Problem Qualifiers JANICE MEADE MD Jan 29, 2017 17:58
[2017-01-29] MEDS ORDERED: PIPERACILLIN/TAZOBACTAM 3.375 GM VIAL IV ONE (18:02)
[2017-01-29] MEDS ORDERED: POLY17PO5 PO (18:02)
[2017-01-29] MEDS ORDERED: APIX5TAB3 PO (18:02)
[2017-01-29] MEDS ORDERED: IV NORMAL SALINE 50ML 50 ML ONE (18:02)
[2017-01-29 19:00] VITALS: BP 142/64
[2017-01-29] MEDS ORDERED: ACETAMINOPHEN 325 MG TABLET PO PRN (20:15)
[2017-01-29] MEDS: IV NORMAL SALINE 1,000ML 1,000 ML IV SCH (20:23)
[2017-01-29] MEDS: LATANOPROST 0.005% OPHTH SOLUTION 2.5ML BOTTLE. OU SCH (21:48)
[2017-01-29] MEDS: LACTOBACILLUS RHAMNOSUS GG 1 CAPSULE. PO SCH (21:49)
[2017-01-29] MEDS: APIXABAN 5 MG TABLET. PO SCH (21:49)
[2017-01-30 00:29] VITALS: BP 118/66
[2017-01-30] MEDS: PIPERACILLIN/TAZOBACTAM 3.375 GM in IV NORMAL SALINE 50ML 50 ML IV SCH ×3 (02:13→18:28)
[2017-01-30 05:20] VITALS: BP 156/73
[2017-01-30] MEDS: IV NORMAL SALINE 1,000ML 1,000 ML IV SCH ×2 (06:07→18:28)
[2017-01-30 06:47] LABS: BASO % 0 % (0-3); EOS % 1 % (0-3); HEMATOCRIT 31.1 % (36.0-47.0); HEMOGLOBIN 10.4 g/dL (12.0-15.5); LYMPH # 1.3 x10^3/uL (1.0-4.8); LYMPH % 19 % (24-48); MEAN CORPUSCULAR HEMOGLOBIN 29 pg (25-35); MEAN CORPUSCULAR HGB CONC 34 g/dL (31-37); MEAN CORPUSCULAR VOLUME 85 fL (79-100); MONO # 0.5 x10^3/uL (0.0-1.1); MONO % 7 % (0-9); NEUT % 73 % (31-73); PLATELET COUNT 225 x10^3/uL (140-400); RED BLOOD COUNT 3.66 x10^6/uL (3.50-5.40); RED CELL DISTRIBUTION WIDTH 13.6 % (11.5-14.5); WHITE BLOOD COUNT 6.8 x10^3/uL (4.0-11.0)
[2017-01-30 07:02] LABS: ALBUMIN 2.2 g/dL (3.4-5.0); ALBUMIN/GLOBULIN RATIO 0.7 (1.0-1.7); CALCIUM 8.2 mg/dL (8.5-10.1); CREATININE 0.5 mg/dL (0.6-1.0); GFR 119.3; POTASSIUM 3.7 mmol/L (3.5-5.1); TOTAL BILIRUBIN 0.5 mg/dL (0.2-1.0); TOTAL PROTEIN 5.5 g/dL (6.4-8.2)
[2017-01-30] MEDS: LACTOBACILLUS RHAMNOSUS GG 1 CAPSULE. PO SCH ×2 (10:06→22:02)
[2017-01-30] MEDS: APIXABAN 5 MG TABLET. PO SCH ×2 (10:06→22:02)
[2017-01-30 10:51] VITALS: BP 135/63
[2017-01-30] MEDS: traMADol 50 MG TABLET PO PRN ×2 (14:06→22:06)
--- NOTE | 2017-01-30 15:16 | HP ---
ADMIT DATE: 01/29/2017 HISTORY OF PRESENT ILLNESS: The patient is a 76-year-old female patient who basically came to the Emergency Room after she saw her primary care physician for a checkup and her temperature was found to be high at 101. She was given Tylenol in the office and was sent to the Emergency Room for further evaluation and the patient herself denied any fever, chills, weakness, cough or congestion. Denied any chest pain or shortness of breath. Denied any dysuria, frequency or hematuria. She was evaluated in the Emergency Room and was found to have evidence of systemic inflammatory response syndrome with fever and also lactic acidosis and a decision was made to admit her to start her on IV fluid, and send urine and blood for culture and sensitivity and was started on IV antibiotic in the form of Zosyn 3.375 grams and obviously continue with all her other medications, particularly her tramadol and apixaban. PAST MEDICAL HISTORY: Significant for osteoarthritis, severe osteoporosis with multiple compressions of thoracic and lumbar vertebral fractures with resultant kyphosis, hypertension, and hyperlipidemia. She also has glaucoma, hyperthyroidism and unintentional weight loss of about 35 pounds. She was also diagnosed with bilateral lower extremity deep vein thrombosis and bilateral pulmonary emboli. PAST SURGICAL HISTORY: Significant for bilateral cataract extraction, bladder suspension, total abdominal hysterectomy, bilateral salpingo-oophorectomy. ALLERGIES: She has no known drug allergies. MEDICATIONS: She is currently on following medications: Apixaban 5 mg twice a day, calcium carbonate 2000 mg once a day, cholecalciferol 1000 international units once a day, citalopram hydrobromide 30 mg once a day, hydrochlorothiazide 12.5 mg once a day, latanoprost 1 drop to both eyes at bedtime. She is on butylene glycol 17 grams daily and tramadol 50 mg every 6 hours. FAMILY HISTORY: Significant for the fact that her 2 brothers are , 1 of lung cancer at the age of 67, 1 of stroke and Alzheimer disease at 75. One of her sisters of lung cancer. The other of Alzheimer disease. She has 3 sisters alive and apparently healthy. Her father at the age of 72 because of a brain tumor. Mother at the age of 81 because of myocardial infarction. SOCIAL HISTORY: She is , has 1 son. Her of lung cancer. She does not drink alcohol. 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 REVIEW OF SYSTEMS: The patient denied any blurring of vision, but did have cataract and glaucoma. Denied any earache, tinnitus or sensorineural deafness. Denied any nosebleeds, stuffy nose or postnasal drip. Denied any sore throat, sore tongue, toothache, hoarseness of voice or difficulty swallowing. Denied any nausea, vomiting, diarrhea or constipation. Denied any hematemesis, melena or hematochezia. Did complain of dysuria and urgency. Denied any hematuria or nocturia. Denied any chest pain. Did complain of shortness of breath ____. Denied any orthopnea. Denied any paroxysmal nocturnal dyspnea. Denied any cough, phlegm or hemoptysis. Denied any chills, rigors or fever. PHYSICAL EXAMINATION: GENERAL: On arrival to the Emergency Room, she looked well and was clearly in no apparent respiratory distress, pale, but no jaundice, cyanosis, or thyromegaly. No jugular venous distension. No lower limb edema. VITAL SIGNS: Her heart rate was 60, blood pressure was 162/82, temperature was 97.7, respiratory rate 20, and oxygen saturation was 99% on room air. HEAD, EYES, EARS, NOSE AND THROAT: Showed normocephalic, atraumatic. NECK: Supple. HEART: Showed normal first and second heart sounds with no gallop, rub or murmur. CHEST: Clear to auscultation. No crepitation or rhonchi. ABDOMEN: Scaphoid, soft, nontender. NEUROLOGIC: She was awake, alert, responding appropriately. All cranial nerves intact. EXTREMITIES: She moves extremities without difficulty. She ambulates with a walker. LABORATORY AND DIAGNOSTIC DATA: In the Emergency Room showed a white cell count of 11,600, hemoglobin 13, hematocrit 40, MCV 85 and platelet count 289,000 with normal manual differential. Her chemistry showed a serum sodium of 134, potassium 3.6, chloride 96, bicarbonate 25, anion gap of 13, BUN 24, creatinine 1, estimated GFR was 54 mL per minute. Her glucose 115, calcium was 9.8. Total bilirubin is normal; however, AST, ALT, alkaline phosphatase slightly elevated. Her lactic acid was 2.7. ____. Total protein was 8, albumin 3.4. Her TSH was 0.867. Her prothrombin time was 10.9, INR of 1.1, aPTT was 29. Urinalysis showed that the urine was yellow, hazy with a pH of 5.5, specific gravity of 1.025 and there was a trace of protein, negative for glucose, trace of ketones, negative for blood and nitrite, trace of leukocyte esterase, 1-2 rbc's, 5-10 wbc's and many bacteria. Her influenza A and B were negative. She had had a chest x-ray, which showed that the heart is normal in size. Lungs are hyperinflated with flattening of the diaphragm, stable retrocardiac opacity is noted, best seen in the lateral view, which corresponds to hiatal hernia, otherwise, lungs are clear, no pneumothorax or pleural effusion. The increased thoracic kyphosis noted with few compression deformities of thoracic spine, likely chronic in nature from osteoporotic fracture. ASSESSMENT AND PLAN: In summary, this is a 76-year-old female patient who came in with fever with mild leukocytosis, lactic acidosis and evidence of systemic inflammatory response syndrome. She was admitted and given IV fluid and started on IV Zosyn after obtaining the blood and urine for culture and sensitivity. We will continue with apixaban. Continue with all other medication. I will decide on further management according to her response. ALEC RIBERA MD DR: RENETTA/ron JOB#: [id number] / [id number]
[2017-01-30 15:20] VITALS: BP 143/69
[2017-01-30 19:39] VITALS: BP 135/66
[2017-01-30] MEDS: LATANOPROST 0.005% OPHTH SOLUTION 2.5ML BOTTLE. OU SCH (22:02)
[2017-01-30 23:17] VITALS: BP 151/70
--- NOTE | 2017-01-31 00:25 | PN ---
DATE: 01/30/2017 SUBJECTIVE: The patient is resting, almost flat in bed in no apparent distress. On questioning her, she continued to complain of shortness of breath on exertion; however, denied any chills, rigors, or fever. PHYSICAL EXAMINATION: GENERAL: When I examined her this afternoon, she looked well and was clearly in no apparent respiratory distress. No jaundice, cyanosis, or thyromegaly. No jugular venous distention. No limb edema. VITAL SIGNS: Her heart rate was 73, blood pressure 135/63, temperature was 98.6, respiratory rate 20, and oxygen saturation 100%. HEAD, EYES, EARS, NOSE, AND THROAT: Showed normocephalic, atraumatic. NECK: Supple. HEART: Showed normal first and second heart sounds. No gallop, rub, or murmur. CHEST: Clear to auscultation. No crepitation or rhonchi. ABDOMEN: Distended, soft, nontender. NEUROLOGIC: She is awake, alert, responding appropriately. Cranial nerves intact. She moves extremities without difficulty. She does ambulate with a walker. Her intake over the last 24 hours was 1250, output was 400. LABORATORY DATA: Her lab work this morning showed a white cell count is down to 6.8, hemoglobin 10.4, hematocrit 31, MCV 85, and platelet count of 225,000 with normal manual differential. Her chemistry showed a serum sodium 138, potassium 3.7, chloride 108, bicarbonate 26, anion gap of 4, BUN 18, creatinine 0.5, estimated GFR was 119 mL per minute. Her glucose was 101. Her lactic acid is down to 0.8, calcium was 8.2. Total bilirubin is normal. AST, ALT slightly elevated, although they are trending down. Her total protein was 5.5, albumin was 2.2. ASSESSMENT: This is a 76-year-old female patient who was admitted with sepsis with systemic inflammatory response syndrome with fever, leukocytosis, and lactic acidosis. She is known to have bilateral lower extremity deep vein thrombosis as well as bilateral pulmonary emboli. She has severe osteoporosis, multiple compression fractures, both thoracic and lumbar spine with resultant kyphosis and chronic back pain. PLAN: My plan is to continue with the IV fluid, continue with IV antibiotics. Continue with apixaban. All other medications, await the result of the urine and blood culture and sensitivity. ALEC RIBERA MD DR: Janiya JOB#: [id number] / [id number]
[2017-01-31] MEDS ORDERED: DOCU-109 PO (00:55)
[2017-01-31] MEDS: PIPERACILLIN/TAZOBACTAM 3.375 GM in IV NORMAL SALINE 50ML 50 ML IV SCH ×3 (01:56→18:45)
[2017-01-31 05:06] VITALS: BP 157/71
[2017-01-31 06:39] LABS: HEMATOCRIT 32.7 % (36.0-47.0); HEMOGLOBIN 10.9 g/dL (12.0-15.5); RED BLOOD COUNT 3.85 x10^6/uL (3.50-5.40); RED CELL DISTRIBUTION WIDTH 13.3 % (11.5-14.5); WHITE BLOOD COUNT 5.4 x10^3/uL (4.0-11.0)
[2017-01-31 06:44] LABS: CALCIUM 8.4 mg/dL (8.5-10.1); CREATININE 0.5 mg/dL (0.6-1.0); GFR 119.3; POTASSIUM 3.6 mmol/L (3.5-5.1)
[2017-01-31] MEDS: DOCUSATE SODIUM 100 MG CAPSULE PO SCH (08:55)
[2017-01-31] MEDS: CITALOPRAM 10 MG TABLET. PO SCH (08:55)
[2017-01-31] MEDS: CHOLECALCIFEROL (VITAMIN D3) 1,000 UNIT TABLET PO SCH (08:56)
[2017-01-31] MEDS: LACTOBACILLUS RHAMNOSUS GG 1 CAPSULE. PO SCH ×2 (08:56→20:58)
[2017-01-31] MEDS: APIXABAN 5 MG TABLET. PO SCH ×2 (08:56→20:58)
[2017-01-31] MEDS: CALCIUM CARBONATE 500 MG TABLET PO SCH (08:56)
[2017-01-31] MEDS ORDERED: POLYETHYLENE GLYCOL 3350 17 GM PACKET. PO SCH (09:00)
[2017-01-31 10:28] VITALS: BP 137/65
[2017-01-31] MEDS: traMADol 50 MG TABLET PO PRN (13:06)
[2017-01-31 14:35] VITALS: BP 152/76
[2017-01-31 19:58] VITALS: BP 148/72
[2017-01-31] MEDS: LATANOPROST 0.005% OPHTH SOLUTION 2.5ML BOTTLE. OU SCH (20:59)
[2017-01-31 22:39] VITALS: BP 165/74
--- NOTE | 2017-02-01 01:22 | PN ---
DATE: 01/31/2017 SUBJECTIVE: The patient is resting comfortably in her chair, in no apparent distress. On questioning her, denied any complaint. She has had no fever; however, white cell count is trending down nicely; however, her liver enzymes continued to be elevated, so far her urine and blood cultures are negative. PHYSICAL EXAMINATION: GENERAL: When I examined her, she looked pale, cachectic, but no jaundice, cyanosis, or thyromegaly. No jugular venous distension. No limb edema. VITAL SIGNS: Her heart rate was 68, blood pressure 137/65, temperature was 97.9, respiratory rate was 20, and oxygen saturation was 94%. HEAD, EYES, EARS, NOSE AND THROAT: Showed normocephalic, atraumatic. NECK: Supple. HEART: Showed normal first and second heart sounds with no gallop, rub or murmur. CHEST: Clear to auscultation. No crepitation or rhonchi. ABDOMEN: Distended, soft, nontender. NEUROLOGIC: She was awake, alert, responding appropriately. Cranial nerves intact. She moves extremities without difficulty. Her intake was 3066, output was 1300. LABORATORY DATA: As of this morning showed a white cell count is down to 5400, hemoglobin 10.9, hematocrit 32.7, MCV 85 and platelet count 244,000. Her chemistry showed a serum sodium of 139, potassium 3.6, chloride 107, bicarbonate 27, anion gap of 5, BUN 6, creatinine 0.5, estimated GFR was 119 mL per minute. Her glucose was 96, calcium was 8.4. Her prothrombin time and INR and aPTT were normal. Urinalysis showed that she has too many bacteria; however, influenza A and B were negative, so far the urine and blood culture are both negative. ASSESSMENT: 1. Sepsis with systemic inflammatory response syndrome with fever, leukocytosis and lactic acidosis. 2. Bilateral lower extremity deep vein thrombosis as well as bilateral pulmonary emboli. 3. Severe osteoporosis with multiple compression fractures, both thoracic and lumbar area with resultant kyphosis and chronic back pain. She is also known to have thyrotoxicosis for which she used to be on antithyroid medication, was stopped because of deranged liver enzyme. 4. Deranged liver enzyme, the cause of which is not very clear to me. PLAN: My plan is to do keep her n.p.o. from midnight tonight, arrange for abdominal ultrasound tomorrow and decide on further management accordingly. ALEC RIBERA MD DR: RENETTA/ron JOB#: [id number] / [id number]
[2017-02-01] MEDS: PIPERACILLIN/TAZOBACTAM 3.375 GM in IV NORMAL SALINE 50ML 50 ML IV SCH ×2 (02:05→12:42)
[2017-02-01 05:04] VITALS: BP 163/70
[2017-02-01 06:54] LABS: BASO % 1 % (0-3); EOS # 0.1 x10^3/uL (0.0-0.7); EOS % 2 % (0-3); LYMPH # 1.7 x10^3/uL (1.0-4.8); LYMPH % 26 % (24-48); MEAN CORPUSCULAR HEMOGLOBIN 28 pg (25-35); MEAN CORPUSCULAR HGB CONC 33 g/dL (31-37); MEAN CORPUSCULAR VOLUME 84 fL (79-100); MONO # 0.4 x10^3/uL (0.0-1.1); MONO % 6 % (0-9); NEUT # 4.3 x10^3uL (1.8-7.7); NEUT % 66 % (31-73); PLATELET COUNT 319 x10^3/uL (140-400); RED BLOOD COUNT 4.28 x10^6/uL (3.50-5.40); WHITE BLOOD COUNT 6.5 x10^3/uL (4.0-11.0)
[2017-02-01 07:15] LABS: ALBUMIN 2.5 g/dL (3.4-5.0); ALBUMIN/GLOBULIN RATIO 0.7 (1.0-1.7); CALCIUM 8.7 mg/dL (8.5-10.1); CREATININE 0.5 mg/dL (0.6-1.0); GFR 119.3; POTASSIUM 3.8 mmol/L (3.5-5.1); TOTAL BILIRUBIN 0.3 mg/dL (0.2-1.0); TOTAL PROTEIN 6.3 g/dL (6.4-8.2)
[2017-02-01] MEDS: APIXABAN 5 MG TABLET. PO SCH (10:07)
[2017-02-01 10:34] VITALS: BP 144/72
[2017-02-01] MEDS: CITALOPRAM 10 MG TABLET. PO SCH (11:36)
[2017-02-01] MEDS: CHOLECALCIFEROL (VITAMIN D3) 1,000 UNIT TABLET PO SCH (11:37)
[2017-02-01] MEDS: CALCIUM CARBONATE 500 MG TABLET PO SCH (11:37)
[2017-02-01] MEDS: LACTOBACILLUS RHAMNOSUS GG 1 CAPSULE. PO SCH (11:37)
[2017-02-01] MEDS: DOCUSATE SODIUM 100 MG CAPSULE PO SCH (11:37)
--- NOTE | 2017-02-01 13:47 | RAD ---
Indication: Fever and leukocytosis. The visualized pancreas is unremarkable. Aorta shows atherosclerotic changes but is nonaneurysmal. IVC is unremarkable. The liver is normal in size. No liver mass is identified. The spleen is unremarkable. The right and left kidneys are unremarkable apart from a tiny echogenic focus in the right kidney, perhaps a nonobstructing calculi. No hydronephrosis is identified. Gallbladder evaluation is limited but no definite gallstones are seen. No wall thickening or biliary ductal dilatation is identified. Impression: 1. Probable nonobstructing right renal calculus. 2. Otherwise unremarkable abdominal ultrasound.
[2017-02-01 14:38] VITALS: BP 129/73
[2017-02-01] MEDS: traMADol 50 MG TABLET PO PRN (16:30)
--- NOTE | 2017-02-01 20:28 | DS ---
DATE OF DISCHARGE: 02/01/2017 HOSPITAL COURSE: The patient is a 76-year-old female patient, who came to the Emergency Room from her primary care physician's office on account of having fever and in fact Initial evaluation showed that she has leukocytosis with a white cell count of 11,600. She has also slightly elevated lactic acid of 2.7 millimoles. We did send urine and blood for culture and sensitivity, was started her empirically on IV Zosyn. The patient remained hemodynamically stable, afebrile throughout her stay. Her white cell count was normal throughout her stay, has normalized and now it is only 6.5 and we have extensively investigated her. She has a chest x-ray as well as abdominal ultrasound. The chest x-ray showed no evidence of any lung infiltrate and ultrasound showed no evidence of acute cholecystitis. Urinalysis was negative for nitrite and there was trace of leukocyte esterase, has only 5-10 wbc's, although there are many bacteria. The culture was negative and showed more than 100,000 colony forming units per mL of mixed urogenital krysta. Her blood culture was negative and given that she has been afebrile, hemodynamically stable with normal white cell count, a decision was made to discharge her home. PHYSICAL EXAMINATION: GENERAL: When I examined her this afternoon, she looked well and was clearly in no apparent respiratory distress, pale, but no jaundice, cyanosis, or thyromegaly. No jugular venous distension. No limb edema. VITAL SIGNS: Her heart rate was 74, blood pressure 129/73, temperature was 98.4, respiratory rate 20, and oxygen saturation was 98%. The rest of clinical examination is unremarkable, has not really changed. LABORATORY DATA: Her lab work this morning showed a white cell count of 6500, hemoglobin 12, hematocrit 36, MCV 84, and platelet count of 319,000. Serum sodium was 141, potassium 3.8, chloride 106, bicarbonate 29, anion gap of 6, BUN 9, creatinine 0.5, estimated GFR was 119 mL per minute. Her glucose was 101, calcium was 8.7. Total bilirubin, AST, ALT were normal. Alkaline phosphatase continued to be slightly elevated. Her Total protein was 6.3, albumin 2.5. Her TSH was normal at 0.813. DISCHARGE MEDICATIONS: The patient was discharged home to continue on apixaban 5 mg twice a day, calcium carbonate 1000 mg daily, cholecalciferol 2000 international units daily, citalopram hydrobromide or Celexa 30 mg once a day, Colace 100 mg once a day, hydrochlorothiazide 12.5 mg once a day, latanoprost 1 drop to both eyes at bedtime, polyethylene glycol 17 grams daily, tramadol 50 mg p.o. q.6 hourly p.r.n. FINAL DISCHARGE DIAGNOSES: 1. Sepsis with systemic inflammatory response syndrome with fever, leukocytosis, and lactic acidosis; however, her urine and blood cultures were negative. 2. Bilateral lower extremity deep vein thrombosis as well as bilateral pulmonary emboli. We will anticoagulate on apixaban. 3. Severe osteoporosis, multiple compression fractures, both thoracic and lumbar with resultant kyphosis, and chronic back pain for thyrotoxicosis. However, her TSH is normal. 4. Liver enzymes of unknown cause that has resolved. ALEC RIBERA MD DR: RENETTA/ron JOB#: [id number] / [id number]
== END 2017-02-01 17:45 | disposition home health service (06) | DRG 871 ==
LOC: ER 15:39 → 1 SOUTH 17:50 → UNDOADMIN 17:50
PROVIDERS: ADMIT Internal Medicine; ATTEND Internal Medicine
DX: A41.9 Sepsis, unspecified organism (principal); I26.99 Other pulmonary embolism without acute cor pulmonale; I82.403 Acute embolism and thrombosis of unspecified deep veins of lower extremity, bilateral; E05.90 Thyrotoxicosis, unspecified without thyrotoxic crisis or storm; E78.5 Hyperlipidemia, unspecified; G89.29 Other chronic pain; H40.9 Unspecified glaucoma; I10 Essential (primary) hypertension; M54.9 Dorsalgia, unspecified; R74.8 Abnormal levels of other serum enzymes; M81.0 Age-related osteoporosis without current pathological fracture; M40.205 Unspecified kyphosis, thoracolumbar region; Z80.1 Family history of malignant neoplasm of trachea, bronchus and lung; Z82.0 Family history of epilepsy and other diseases of the nervous system; Z82.3 Family history of stroke; Z82.49 Family history of ischemic heart disease and other diseases of the circulatory system; Z90.710 Acquired absence of both cervix and uterus; Z98.41 Cataract extraction status, right eye; Z98.42 Cataract extraction status, left eye; Z90.722 Acquired absence of ovaries, bilateral; Z87.81 Personal history of (healed) traumatic fracture
CPT/HCPCS: 36415; 71020; 76700; 80048; 80053; 81001; 83605; 83880; 84443; 84484; 85025; 85027; 85610; 85730; 87040; 87086; 87804; 93005; 96361; 96365; J2543; J7040; 99285-25; J7030

== ENCOUNTER → 2017-02-20 | Outpatient (CLI) | payer MEDICARE, BC ==
[2017-02-01 14:38] VITALS: BP 129/73
[~2017-02-20] MED LIST changes: +DOCU-109 PO
== END | disposition home or self-care (01) ==
LOC: SURG 14:01
PROVIDERS: ATTEND Anesthesiology
DX: M51.16 Intervertebral disc disorders with radiculopathy, lumbar region (principal); M16.0 Bilateral primary osteoarthritis of hip; G89.4 Chronic pain syndrome; I10 Essential (primary) hypertension
CPT/HCPCS: 99214